=== PATIENT | female | born 1995 | race Caucasian/White ===

== ENCOUNTER 2020-02-12 18:06 | Emergency (ER) | payer MEDICAID, SELFPAY ==
[2020-02-12 18:37] VITALS: BP 131/87; PULSE 78; RESP 18; TEMP 36.7; O2SAT 97; BMI 33.9
--- NOTE | 2020-02-12 18:50 | HMH.EDUTC ---
[facility] – [place] Disposition Clinical Impression: Viral pharyngitis, Exposure to COVID-19 virus Disposition: Home, Self-Care Condition on Discharge: Good Instructions: Preventing the Spread of Coronavirus Discharge Instructions Additional Instructions: Drink plenty of fluids. Take tylenol for pain or fever. Return if you begin to have difficulty breathing. Follow up with your regular doctor. GO TO THE ER FOR ANY WORSENING SYMPTOMS Referrals: Jakub Hutchison [Primary Care Provider] - Forms: Work/School Release Time of Disposition: 19:02 Medical Decision Making - Medical Records Medical records reviewed: No: I reviewed the patient's medical records. - [facility] In[facility] Pt receiving controlled substance: No Vital Signs: 02/12/20 18:37 02/12/20 19:14 Temperature 98.1 F 98.1 F Temperature Source Oral Oral Pulse Rate 78 Pulse Rate [Radial] 78 Respiratory Rate 18 18 Blood Pressure 131/87 Blood Pressure [Right Arm] 131/87 Blood Pressure Mean [Right Arm] 101 Blood Pressure Source Automatic Cuff Blood Pressure Source [Right Arm] Automatic Cuff Blood Pressure Position Sitting Blood Pressure Position [Right Arm] Sitting 02 Sat by Pulse Oximetry 97 Oxygen Delivery Method Room Air Room Air - Lab Data Lab Results 02/12/20 18:39: Strep Scn Rapid Clinic Negative Orders (Tests/Meds): ORDERS Category Date Time Status Covid-19 Nasal PCR Sendout [facility] 02/12/20 18:39 Received Strep Screen Confirmation Stat Micro 02/12/20 18:39 Received [facility] [place] HPI - General Stated complaint: covid test Time Seen by Provider: 02/12/20 18:52 Mode of Arrival: Ambulatory Source of Information: Patient Limitations: No Limitations Description of Symptoms (Recalled from Triage Doc. by RN): covid test, sore throat. HEENT Symptoms (Recalled from RN notes): Yes Resp Symptoms (Recalled from RN notes): No Skin Symptoms (Recalled from RN notes): No MS Symptoms (Recalled from RN notes): No Functional Status (Recalled from RN notes): wnl - History of Present Illness Provider Complaint: She states that she has had sore throat on and off for the past week. She denies any fever or chills. She is here to be tested for covid-19 just to make sure she doesn't have it. - Related Data Allergies Allergy/AdvReac Type Severity Reaction Status Date / Time Penicillins Allergy Verified 02/12/20 18:39 red dye Allergy Verified 02/12/20 18:39 - Worker's Comp Is this a Worker's Comp case?: No [facility] History - Hepatitis A Screen Drug use history?: No High risk sexual behaviors?: No History of sexually transmitted infection?: No Currently employed?: No Childcare worker?: No Do you have indoor plumbing?: Yes Do you have electricity?: Yes Attestation statement:: This patient has been screened for Hepatitis A risk factors. I have reviewed the patient's past medical history: Yes - Social History Alcohol Intake: never Occupational Status: other ROS Obtained: Yes All systems reviewed & no additional complaints - Constitutional Constitutional: Reports system reviewed and no additional complaints, except as docu - Eyes Eyes: Reports system reviewed and no additional complaints, except as docu - ENT Ears, Nose, Mouth, and Throat: Reports system reviewed and no additional complaints, except as docu - Cardiovascular Cardiovascular: Reports system reviewed and no additional complaints, except as docu - Respiratory Respiratory: Yes system reviewed and no additional complaints, except as docu - Gastrointestinal Gastrointestingal: Reports: system reviewed and no additional complaints, except as docu Physical Exam - General General appearance: alert, in no apparent distress - Head Head exam: atraumatic, normocephalic, normal inspection - Eye Eye exam: Present: normal appearance, PERRL, EOMI - ENT ENT exam: Present: normal exam, normal oropharynx, mucous membranes moist, TM's normal bilaterally,
[2020-02-12 19:02] LABS: UTC Strep Screen (Rapid) Negative (Negative)
[2020-02-12 19:14] VITALS: BP 131/87; PULSE 78; RESP 18; TEMP 36.7; O2SAT 97
[2020-02-14 12:08] LABS: Covid-19 Nasal PCR Sendout Lex Not Detected
== END 2020-02-12 19:15 | disposition home or self-care (01) ==
PROVIDERS: Emergency Provider Nurse Practitioner Family; PCP Family Medicine
DX: Z20.828 Contact with and (suspected) exposure to other viral communicable diseases (principal); J02.9 Acute pharyngitis, unspecified
CPT/HCPCS: 87880; 99202; U0004